=== PATIENT | male | born 1980 | race Caucasian/White ===

== ENCOUNTER 2023-03-13 06:20 | Day surgery (SDC) | payer BC ==
[2023-03-07 09:29] LABS: BILIRUBIN,URINE NEGATIVE (Neg); CLARITY,URINE CLEAR (Clear); COLOR,URINE YELLOW (Yellow); GLUCOSE, URINE NEGATIVE (Neg); KETONES,URINE NEGATIVE (Neg); LEUKOCYTE ESTERASE ,URINE NEGATIVE (Neg); NITRITES, URINE NEGATIVE (Neg); OCCULT BLOOD,URINE NEGATIVE (Neg); PH,URINE 5.5 (4.8-8.0); PROTEIN,URINE NEGATIVE (Neg); UROBILINOGEN,URINE 0.2 E.U/dL (0.2-1.0)
[2023-03-07 09:35] LABS: BASOPHILS % (AUTO) 0.5 % (0-1); EOSINOPHILS # (AUTO) 0.1 X10'3 (0-0.9); EOSINOPHILS % (AUTO) 1.5 % (0-6); HEMATOCRIT 48.8 % (42.0-52.0); HEMOGLOBIN 16.5 g/dl (14.0-17.9); LYMPHOCYTES # (AUTO) 1.7 X10'3 (1.1-4.8); LYMPHOCYTES % (AUTO) 24.7 % (21-51); MEAN CORPUSCULAR HEMOGLOBIN 30.1 PG (27.0-31.0); MEAN CORPUSCULAR HGB CONC 33.8 g/dL (33.0-36.5); MEAN CORPUSCULAR VOLUME 89.1 FL (78-98); MEAN PLATELET VOLUME 8.6 FL (7.4-10.4); MONOCYTES # (AUTO) 0.7 X10'3 (0-0.9); MONOCYTES % (AUTO) 10.5 % (2-12); NEUTROPHILS # (AUTO) 4.2 X10'3 (1.8-7.7); NEUTROPHILS % (AUTO) 62.8 % (42-75); PLATELET COUNT 236 X10'3 (140-440); RED BLOOD COUNT 5.47 X10'6 (4.70-6.10); RED CELL DISTRIBUTION WIDTH 13.1 % (11.5-14.5); WHITE BLOOD COUNT 6.7 X10'3 (4.5-11.0)
[2023-03-07 09:35] LABS: UA COLLECTION TYPE CLN CATCH MIDSTREAM
[2023-03-07 10:25] LABS: ALANINE AMINOTRANSFERASE 61 U/L (12-78); ALBUMIN 4.2 G/DL (3.4-5.0); ALBUMIN/GLOBULIN RATIO 1.3 (1.1-1.5); ALKALINE PHOSPHATASE 84 IU/L (46-116); ANION GAP 10 (8-16); ASPARTATE AMINO TRANSFERASE 25 U/L (10-37); BILIRUBIN,TOTAL 0.3 MG/DL (0.1-1.0); BLOOD UREA NITROGEN 14 MG/DL (7-18); BUN/CREATININE RATIO 12.2 (10.0-20.0); CALCIUM 9.5 MG/DL (8.5-10.1); CHLORIDE 103 MMOL/L (99-107); CREATININE 1.15 MG/DL (0.60-1.10); GLUCOSE 102 MG/DL (70-104); POTASSIUM 4.3 MMOL/L (3.5-5.1); SODIUM 139 MMOL/L (135-145); TOTAL CARBON DIOXIDE 26.5 MMOL/L (24-32); TOTAL PROTEIN 7.5 G/DL (6.4-8.2); eGFR 70 ML/MIN
[2023-03-13] VITALS (14 sets, daily range): BP systolic 101–146; BP diastolic 60–97; PULSE 62–100; RESP 11–17; TEMP 98.4; O2SAT 93–98
[~2023-03-13] VITALS: Ht 180.3 cm; Wt 100.1 kg
[~2023-03-13 06:20] MED LIST: TUMS PO; cefazolin 2gm/D5W 100mL 100 ML IV ONE; famotidine 20mg tablet PO ONE; ringers solution, lacted 1,000 ML IV SCH
[2023-03-13] MEDS ORDERED: BUPIVAcaine/PF 2.5 mg/ml (0.25%) 30ml vial ONE (08:15)
[2023-03-13] MEDS ORDERED: fentaNYL/PF 50MCG/1 ML 2ML syringe IV PRN ×2 (08:55)
[2023-03-13] MEDS ORDERED: acetaminophen 1,000mg/100ml IV 100 ML IV PRN (08:55)
[2023-03-13] MEDS ORDERED: ketorolac trometh. 30mg/ml inj. IV ONE (08:55)
[2023-03-13] MEDS ORDERED: ringers solution, lacted 1,000 ML IV SCH (08:55)
[2023-03-13] MEDS ORDERED: ondansetron/PF 4mg/2ml inj IV PRN (08:55)
[2023-03-13] MEDS ORDERED: hydrALAZINE 20mg/ml inj. IV PRN (08:55)
[2023-03-13] MEDS ORDERED: proCHLORperazine 10 MG/2 ml inj IV PRN (08:55)
[2023-03-13] MEDS ORDERED: labetalol 20mg/4ml (5mg/ml) syringe IV PRN (08:55)
[2023-03-13] MEDS ORDERED: meperidine/PF 25mg/ml syringe IV PRN ×3 (08:55)
[2023-03-13] MEDS ORDERED: glycopyrrolate 0.2mg/ml inj ONE (08:56)
[2023-03-13] MEDS ORDERED: sevoflurane 250ml liquid IH ONE (08:56)
[2023-03-13] MEDS ORDERED: midazolam 1 mg/ML 2ml injection ONE (08:59)
[2023-03-13] MEDS ORDERED: fentaNYL /PF 50mcg/ml 5ml ampule ONE (08:59)
[2023-03-13] MEDS ORDERED: ondansetron/PF 4mg/2ml inj ONE (09:22)
[2023-03-13] MEDS ORDERED: dexamethasone sod phosphate 4mg/ml inj. ONE (09:22)
[2023-03-13] MEDS ORDERED: LIDOcaine 2% (20mg/ml) 5ml vial ONE (09:22)
[2023-03-13] MEDS ORDERED: rocuronium 10mg/ml inj IV ONE ×2 (09:22→10:45)
[2023-03-13] MEDS ORDERED: propofol inj 20 ML IV ONE (09:22)
[2023-03-13] MEDS ORDERED: BUPIVAcaine/PF 2.5 mg/ml (0.25%) 30ml vial IJ ONE ×2 (09:33→10:54)
[2023-03-13] MEDS ORDERED: neostigmine methylsulfate 1 MG/ML 10ml vial ONE (10:59)
--- NOTE | 2023-03-13 11:09 | NUR ---
Received from OR via , accompanied by Anesthesiologist DR CALL and report given by Anesthesiolgist. PT SLEEPING WITH POST OP SHIVERS, (DEMEROL GIVEN WHICH RESOLVED SHIVERS),SKIN WARM AND PINK, PIV RIGHT HAND 20G, 3 LAP SITES WITH DERMABOND, CD, VSS.
[2023-03-13] MEDS ORDERED: oxyCODONE IR 5mg (immed. release) tablet PO ONE (12:05)
--- NOTE | 2023-03-13 13:09 | NUR ---
PT AWAKE, ALERT, MINIMAL PAIN, MOVING SBA, JOSÉ LUIS FLUIDS, VOIDED PRIOR TO DISCHARGE, GAVE A PAIN PILL PRIOR TO DISCHARGE, REMOVED IV, LAP SITES CD, DISCHARGE INSTRUCTIONS REVIEWED WITH PT AND , PT MEETS DISCHARGE CRITERIA.
--- NOTE | 2023-03-13 13:09 | NUR ---
TAKE TO CAR VIA W/C.
== END 2023-03-13 13:09 | disposition home or self-care (01) ==
LOC: PAS 06:20
PROVIDERS: ATTEND Surgery
DX: K40.20 Bilateral inguinal hernia, without obstruction or gangrene, not specified as recurrent (principal); D17.6 Benign lipomatous neoplasm of spermatic cord; Z72.89 Other problems related to lifestyle; Z88.8 Allergy status to other drugs, medicaments and biological substances; Z98.890 Other specified postprocedural states; Z79.899 Other long term (current) drug therapy; Z82.49 Family history of ischemic heart disease and other diseases of the circulatory system
CPT/HCPCS: 36415; 49650; 80053; 81003; 82948; 85025; 93005; C1781; J0690; J1100; J2175; J2250; J2405; J2704; J2710; J3010; J3490; J7030; J7120; S2900; Z7506; Z7508; Z7512; A4215; A4618; C1758

== ENCOUNTER 2023-08-06 15:49 | Outpatient (CLI) | payer BC ==
[~2023-08-06 15:49] MED LIST changes: -cefazolin 2gm/D5W 100mL 100 ML IV ONE; -famotidine 20mg tablet PO ONE; -ringers solution, lacted 1,000 ML IV SCH
== END 2023-08-06 23:59 | disposition home or self-care (01) ==
LOC: RAD 15:49
PROVIDERS: ATTEND Surgery
DX: K76.0 Fatty (change of) liver, not elsewhere classified (principal); K57.30 Diverticulosis of large intestine without perforation or abscess without bleeding; R10.12 Left upper quadrant pain
CPT/HCPCS: 74176